=== PATIENT | male | born 1995 | race Two or more races ===

== ENCOUNTER 2017-03-07 22:50 | Emergency (ER) | payer SELFPAY ==
[~2017-03-07] VITALS: Ht 182.9 cm; Wt 73.0 kg
[2017-03-08] MEDS ORDERED: ONDANSETRON HCL 4MG/2ML VIAL IV STA (04:06)
[2017-03-08] MEDS ORDERED: KETOROLAC 30MG/ML VIAL IV STA (04:06)
[2017-03-08] MEDS ORDERED: SODIUM CHLORIDE 0.9% 1,000 ML IV ONE ×2 (04:06→06:03)
[2017-03-08] MEDS ORDERED: MORPHINE SULFATE 4 MG/ML CPJ (NOT FOR IM USE) IV ONE (04:15)
[2017-03-08] MEDS ORDERED: CEFTRIAXONE 2 G PREMIX 50 ML IV ONE (04:15)
[2017-03-08] MEDS ORDERED: METHYLPREDNISOLONE SOD SUCC 125 MG/2 ML VIAL IV ONE (04:15)
[2017-03-08 04:55] LABS: BASOPHILS % 0.6 % (0.0-2.0); EOSINOPHILS % 0.7 % (0.0-5.0); HEMATOCRIT. 39.1 % (42.0-52.0); HEMOGLOBIN. 13.3 g/dL (14.0-18.0); MEAN CORPUSCULAR HEMOGLOBIN 31.2 pg (28.0-32.0); MEAN CORPUSCULAR VOLUME 91.7 fL (80.0-94.0); MEAN PLATELET VOLUME 8.3 fl (7.4-10.4); MONOCYTES % 7.4 % (2.0-8.0); NEUTROPHILS % 81.3 % (40.0-76.0); PLATELET 239 x1000/uL (130-400); RED BLOOD CELL COUNT 4.27 mill/uL (4.7-6.1); RED CELL DISTRIBUTION WIDTH 13.3 % (11.6-14.6)
[2017-03-08 05:01] LABS: INR 1.1; PROTHROMBIN TIME 11.4 sec (9.4-11.6)
[2017-03-08 05:09] LABS: CARBON DIOXIDE 28 mEq/L (21-32); CHLORIDE 103 mEq/L (98-107)
[2017-03-08 05:37] VITALS: BP 121/57
[2017-03-08 05:50] LABS: CLARITY URINE CLEAR (CLEAR); COLOR URINE YELLOW (YELLOW); GLUCOSE URINE NEGATIVE (NEGATIVE); KETONES URINE NEGATIVE (NEGATIVE); LEUKOCYTE ESTERASE URINE NEGATIVE (NEGATIVE); NITRITE URINE NEGATIVE (NEGATIVE); OCCULT BLOOD URINE NEGATIVE (NEGATIVE); PH URINE 7.5 (4.5-8.0); PROTEIN URINE NEGATIVE (NEGATIVE); SPECIFIC GRAVITY URINE 1.019 (1.005-1.030)
== END 2017-03-08 09:35 | disposition home or self-care (01) ==
LOC: ER 22:50
DX: J36 Peritonsillar abscess (principal); F17.200 Nicotine dependence, unspecified, uncomplicated; F12.10 Cannabis abuse, uncomplicated
CPT/HCPCS: 36415; 70490; 80053; 81003; 85025; 85610; 96361; 96374; 96375; 99285; J0696; J2270; J2405; J2930; J7030; Z7610